=== PATIENT | male | born 1980 | race African-American/Black ===

== ENCOUNTER 2019-06-14 17:02 | Observation (INO) | payer SELFPAY ==
--- NOTE | 2019-06-14 17:44 | CT ---
CT head noncontrast HISTORY: Head injury. Syncope. COMPARISON: 07/26/2002. FINDINGS: There is no evidence of acute intracranial hemorrhage or infarct. Hyperdensity at each basa l ganglia has progressed and is consistent with dystrophic calcification. It is somewhat pronounced for the patient's age. There is no mass effect or shift of midline structures. Mucosal thickening wit hin the ethmoid air cells. IMPRESSION: No acute intracranial abnormalities are demonstrated.
[2019-06-14 17:55] LABS: #Eosinphils 0.1 thou/uL (0.0-0.7); #Lymphocytes 1.1 thou/uL (1.20-3.40); #Monocytes 0.7 thou/uL (0.11-0.59); #Neutrophils 5.6 thou/uL (1.40-6.50); %Basophils 0.1 % (0.0-1.0); %Eosinophils 1.4 % (0.0-10.0); %Lymphocytes 15.3 % (21.0-51.0); %Monocytes 8.8 % (0.0-10.0); %Neutrophils 74.4 % (42.0-75.0); Hemoglobin 12.7 g/dL (14.0-18.0); Mean Corpuscular HGB CONC 34.4 g/dL (32.0-36.0); Mean Corpuscular Hemoglobin 32.2 pg (27.0-31.0); Mean Corpuscular Volume 93.5 fL (78.0-98.0); Mean Platelet Volume 6.9 fL (7.4-10.4); Platelet Count 230 thou/uL (130-400); RBC Distribution Width 11.5 % (11.5-14.5); Red Blood Cell (RBC) Count 3.95 mill/uL (4.70-6.10); White Blood Cell (WBC) Count 7.5 thou/uL (4.8-10.8)
[2019-06-14 18:16] LABS: ALT (SGPT) 108 U/L (8-55); AST (SGOT) 238 U/L (5-34); Acetaminophen Less than 6.0 mcg/mL (10.0-30.0); Alcohol 32 mg/dL (Less than 10); Alkaline Phosphatase 80 U/L (40-110); Anion Gap 15 mmol/L (10-20); BUN (Urea Nitrogen) 15 mg/dL (8.9-20.6); Bilirubin, Total 0.5 mg/dL (0.2-1.2); Calc. Creatinine Clearance 0 mL/min (70-130); Calcium 8.8 mg/dL (7.8-10.44); Carbon Dioxide 22 mmol/L (22-29); Chloride 107 mmol/L (98-107); Estimated GFR-MDRD Greater than 90; Globulin 3.1 g/dL (2.4-3.5); Glucose 116 mg/dL (70-105); Lipase 24 U/L (8-78); Potassium 3.5 mmol/L (3.5-5.1); Protein, Total 7.1 g/dL (6.0-8.3); Salicylate Less than 8.0 mg/dL (15.0-30.0); Sodium 140 mmol/L (136-145)
--- NOTE | 2019-06-14 18:33 | RAD ---
Chest one view HISTORY: Syncope. FINDINGS: Cardiac silhouette is magnified by projection. Pulmonary vasculature is unremarkable. Media stinum is midline. No lobar consolidation or evidence of pneumothorax. Old right clavicle fracture. IMPRESSION: No active cardiopulmonary abnormalities are demonstrated.
[2019-06-14 18:43] LABS: CK (CPK) 13445 U/L (30-200)
[2019-06-14 21:30] LABS: Bilirubin Negative (Negative); Blood, Urine Negative (Negative); Clarity Clear (Clear); Glucose, Urine (Dipstick) Normal (Negative); Leukocyte Negative Leu/uL (Negative); Nitrite Negative (Negative); Protein, Urine (Dipstick) Negative (Neg-Trace); Urobilinogen Normal mg/dL (Less than 2)
[2019-06-14 21:43] LABS: Medtox Reader # READER 4
[2019-06-14 21:44] LABS: Amphetamine Not Detected (NotDetected); Barbiturates Screen Not Detected (NotDetected); Benzodiazepine Screen Not Detected (NotDetected); Cocaine Metabolite Screen Not Detected (NotDetected); Medtox Control Line Valid? VALID (VALID); Methadone Not Detected (NotDetected); Methamphetamine Not Detected (NotDetected); Opiate Screen Not Detected (NotDetected); Oxycodone Screen Not Detected (NotDetected); Phencyclidine (PCP) Detected (NotDetected); THC/Cannabinoid Screen Not Detected (NotDetected); Tricyclic Screen Not Detected (NotDetected)
[2019-06-15] MEDS ORDERED: Acetaminophen 325 MG TAB PO PRN ×2 (00:36→06:25)
[2019-06-15] MEDS ORDERED: Ondansetron ODT 4 MG TAB SL PRN (00:36)
[2019-06-15] MEDS ORDERED: Ondansetron PF 4 MG/2 ML Vial IVP PRN ×2 (00:36→06:25)
[2019-06-15 00:48] VITALS: BMI 26.2
[2019-06-15] MEDS: Lactated Ringer's 1,000 ML IV SCH ×2 (01:04→05:30)
[2019-06-15] MEDS ORDERED: hydrALAZINE 20 MG/ML VIAL SLOW IVP PRN (06:25)
[2019-06-15] MEDS ORDERED: Ondansetron ODT 4 MG TAB PO PRN (06:25)
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
[2019-06-15 07:10] LABS: HBCM Index 0.05 S/CO (0-0.79); Hep A IgM AB Non-Reactive (NonReactive); Hep C IgG Ab Non-Reactive (NonReactive); Hep C Index 0.07 S/CO (0-0.79); Hepatitis B Core IgM Abs Non-Reactive (NonReactive)
[2019-06-15] MEDS ORDERED: Loratadine 10 MG TAB PO PRN (07:30)
[2019-06-15] MEDS ORDERED: Bisacodyl 10 MG SUPP PR PRN (07:30)
[2019-06-15] MEDS ORDERED: Cepastat Lozenges 1 LOZ PO PRN (07:30)
[2019-06-15] MEDS ORDERED: Diabetic Tussin 200 MG/10 ML UDCUP PO PRN (07:30)
[2019-06-15] MEDS ORDERED: Labetalol HCl 100 MG/20 ML VIAL SLOW IVP PRN (07:30)
[2019-06-15] MEDS ORDERED: Loperamide HCl 2 MG CAP PO PRN (07:30)
[2019-06-15] MEDS ORDERED: Calcium Carbonate 500 MG ChewTAB PO PRN (07:30)
[2019-06-15] MEDS ORDERED: Artificial Tears 18 DROP/0.9 ML EA EYE PRN (07:30)
[2019-06-15] MEDS ORDERED: HYDROcodone/Acetaminophen 5/325 mg Tablet PO PRN (07:30)
[2019-06-15] MEDS ORDERED: Senokot S 8.6-50 MG TAB PO PRN (07:30)
[2019-06-15] MEDS ORDERED: Sodium Chloride 0.65% Nasal 44 ML BOT EA NARE PRN (07:30)
[2019-06-15] MEDS ORDERED: Temazepam 15 MG CAP PO PRN (07:30)
[2019-06-15] MEDS: Sodium Chloride 0.9% 1,000 ML IV SCH ×3 (07:56→20:09)
[2019-06-15] MEDS: Famotidine 20 MG TAB PO SCH ×2 (07:58→20:09)
[2019-06-15] MEDS: Enoxaparin Sodium 40 MG/0.4 ML SYRINGE SC SCH (07:58)
[2019-06-15 08:50] LABS: Hep B Surf Ag Reflx Confirmation S/CO (NonReactive)
[2019-06-15 08:52] LABS: HBSAg Index 5445.63 S/CO (0-0.99)
--- NOTE | 2019-06-15 08:55 | ULT ---
EXAM: US Abdominal CLINICAL HISTORY: Elevated liver function test. COMPARISON: None. FINDINGS: Pancreas: Obscured by bowel gas IVC: Obscured by bowel gas Aorta: Visualized aorta has a normal caliber. Liver:Normal hepatic parenchymal echotexture. No hepatic masses or intrahepatic biliary dilatation. T he contour of the hepatic margins maintained. Gallbladder: Contracted, likely due to nonfasting state. Limited evaluation. Romero's sign:Negative CBD: Common bile duct diameter 0.4 cm Portal vein: Patent. Appropriate directional flow. Right kidney: No hydronephrosis. Right kidney measuring 5.2 x 4.4 x 8.4 cm in length. Left kidney: No hydronephrosis . Left kidney measuring 10.0 x 5.2 x 5.5 cm in length Spleen: Normal echotexture. Spleen measures 9.9 cm in maximal length IMPRESSION: 1. Contracted gallbladder, limiting evaluation 2. Normal hepatic parenchymal echotexture. 3. No hydronephrosis.
[2019-06-15] MEDS ORDERED: FLU VACC QS2019-20(6MOS UP)/PF 60 MCG/0.5 ML SYRINGE IM ONE (09:00)
--- NOTE | 2019-06-15 11:46 | PDOC.HOSPP ---
- Subjective Encounter Date: 06/15/19 Encounter Time: 09:45 Subjective: Patient seen and examined. No new complaints. No overnight events - Objective Vital Signs & Weight: Vital Signs (12 hours) Temp Pulse Resp BP Pulse Ox 06/15/19 07:49 98.5 F 88 20 117/55 L 93 L 06/15/19 04:00 99.0 F 91 20 117/73 95 06/15/19 00:20 98.4 F 83 18 126/79 98 Weight Weight 178 lb Result Diagrams: 06/14/19 17:46 06/14/19 17:46 Radiology Reviewed by me: Yes Hospitalist ROS - Review of Systems Eyes: denies: pain, vision change, conjunctivae inflammation, eyelid inflammation, redness, other ENT: denies: ear pain, ear discharge, nose pain, nose discharge, nose congestion , mouth pain, mouth swelling, throat pain, throat swelling, other Respiratory: denies: cough, dry, shortness of breath, hemoptysis, SOB with excertion, pleuritic pain, sputum, wheezing, other Cardiovascular: denies: chest pain, palpitations, orthopnea, paroxysmal noc. dyspnea, edema, light headedness, other Gastrointestinal: denies: nausea, vomiting, abdominal pain, diarrhea, constipation, melena, hematochezia, other Genitourinary: denies: dysuria, frequency, incontinence, hematuria, retention, other Skin: denies: rash, lesions, flaca, bruising, other - Medication Medications: Active Medications Generic Name Dose Route Start Last Admin Trade Name Freq PRN Reason Stop Dose Admin Enoxaparin Sodium 40 mg 06/15/19 09:00 06/15/19 07:58 Lovenox SC 40 mg 0900 ANTHONY Administration Famotidine 20 mg 06/15/19 09:00 06/15/19 07:58 Pepcid PO 20 mg BID ANTHONY Administration Sodium Chloride 1,000 mls @ 150 mls/hr 06/15/19 06:30 06/15/19 07:56 Normal Saline 0.9% IV 1,000 mls .[id number] ANTHONY Administration Sodium Chloride 10 ml 06/15/19 09:00 06/15/19 08:00 Flush - Normal Saline IVF 10 ml Q12HR ANTHONY Administration - Exam General Appearance: NAD, awake alert Eye: PERRL, anicteric sclera ENT: normocephalic atraumatic, no oropharyngeal lesions Neck: supple, symmetric, no JVD, no thyromegaly, no lymphadenopathy Heart: RRR, no murmur, no gallops, no rubs Respiratory: CTAB, no wheezes, no rales, no ronchi Gastrointestinal: soft, non-tender, non-distended, normal bowel sounds Extremities: no cyanosis, no clubbing, no edema Skin: normal turgor, no lesions, no rashes Neurological: cranial nerve grossly intact, no focal deficits Musculoskeletal: normal tone, normal strength Psychiatric: normal affect, normal behavior Hosp A/P (1) Elevated liver function tests Code(s): R94.5 - ABNORMAL RESULTS OF LIVER FUNCTION STUDIES Status: Acute (2) Rhabdomyolysis Code(s): M62.82 - RHABDOMYOLYSIS Status: Acute (3) Schizophrenia Code(s): F20.9 - SCHIZOPHRENIA, UNSPECIFIED Status: Chronic (4) Substance abuse Code(s): F19.10 - OTHER PSYCHOACTIVE SUBSTANCE ABUSE, UNCOMPLICATED Status: Chronic (5) Hepatitis B Status: Chronic Qualifiers: Viral hepatitis chronicity: chronic - Plan old records reviewed/req 06/15/19 continue IVF today repeat labs tomorrow possible discharge tomorrow if CK better counselled to avoid substance abuse RUQ US is normal check hepatitis IgG antibody tomorrow
[2019-06-16] MEDS: Sodium Chloride 0.9% 1,000 ML IV SCH ×2 (02:30→06:07)
[2019-06-16 06:13] LABS: ALT (SGPT) 67 U/L (8-55); AST (SGOT) 80 U/L (5-34); Albumin 3.4 g/dL (3.5-5.0); Alkaline Phosphatase 68 U/L (40-110); Anion Gap 10 mmol/L (10-20); BUN (Urea Nitrogen) 7 mg/dL (8.9-20.6); Bilirubin, Total 0.7 mg/dL (0.2-1.2); CK (CPK) 3520 U/L (30-200); Calc. Creatinine Clearance 146 mL/min (70-130); Calcium 8.4 mg/dL (7.8-10.44); Carbon Dioxide 23 mmol/L (22-29); Chloride 111 mmol/L (98-107); Estimated GFR-MDRD Greater than 90; Glucose 86 mg/dL (70-105); Potassium 3.5 mmol/L (3.5-5.1); Protein, Total 6.4 g/dL (6.0-8.3); Sodium 140 mmol/L (136-145)
[2019-06-16 06:18] LABS: Hep B Surf AB Non-Reactive (NonReactive)
[2019-06-16 08:18] VITALS: BP 128/72; TEMP 98.2
[2019-06-16] MEDS: Famotidine 20 MG TAB PO SCH (08:50)
[2019-06-16] MEDS: Enoxaparin Sodium 40 MG/0.4 ML SYRINGE SC SCH (08:50)
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
[2019-06-16 14:09] LABS: Hep B Surface AG-Rflx Sendout Confirm. indicated (Negative)
== END 2019-06-16 14:10 | disposition home or self-care (01) ==
LOC: ERS 17:02 → T4-A 19:15
PROVIDERS: ADMIT Internal Medicine; ATTEND Internal Medicine
DX: M62.82 Rhabdomyolysis (principal); F16.10 Hallucinogen abuse, uncomplicated; F20.9 Schizophrenia, unspecified; B18.1 Chronic viral hepatitis B without delta-agent; F17.210 Nicotine dependence, cigarettes, uncomplicated; F41.9 Anxiety disorder, unspecified; Z79.899 Other long term (current) drug therapy
CPT/HCPCS: 36415; 70450; 71045; 80053; 80074; 80306; 80307; 81003; 82550; 83690; 84443; 85025; 86706; 87340; 90471; 90686; 93005; 93975; 96360; 96361; 96372; G0008; G0378; J1650

== ENCOUNTER 2020-06-15 12:47 | Emergency (ER) | payer OTHER, SELFPAY ==
--- NOTE | 2020-06-15 13:57 | RAD ---
XR Chest 1 View Portable HISTORY: Cough COMPARISON: 06/21/2019 FINDINGS: The heart size is normal. The lungs are well expanded without focal areas of consolidation, pneumothorax or pleural effusions. IMPRESSION: No radiographic evidence of acute cardiopulmonary process.
--- NOTE | 2020-06-15 13:58 | RAD ---
XR Foot Lt 3 View STANDARD HISTORY: left foot pain FINDINGS: No fracture or dislocation is identified.
[2020-06-15 14:21] LABS: #Eosinphils 0.1 thou/uL (0.0-0.7); #Lymphocytes 1.5 thou/uL (1.20-3.40); #Monocytes 0.7 thou/uL (0.11-0.59); #Neutrophils 3.7 thou/uL (1.40-6.50); %Basophils 0.7 % (0.0-1.0); %Eosinophils 1.4 % (0.0-10.0); %Lymphocytes 24.3 % (21.0-51.0); %Monocytes 12.2 % (0.0-10.0); %Neutrophils 61.4 % (42.0-75.0); Hemoglobin 14.1 g/dL (14.0-18.0); Mean Corpuscular HGB CONC 34.5 g/dL (32.0-36.0); Mean Corpuscular Hemoglobin 32.6 pg (27.0-31.0); Mean Corpuscular Volume 94.5 fL (78.0-98.0); Mean Platelet Volume 7.2 fL (7.4-10.4); Platelet Count 270 thou/uL (130-400); RBC Distribution Width 11.7 % (11.5-14.5); Red Blood Cell (RBC) Count 4.33 mill/uL (4.70-6.10)
[2020-06-15 14:40] LABS: ALT (SGPT) 17 U/L (8-55); AST (SGOT) 30 U/L (5-34); Alkaline Phosphatase 96 U/L (40-110); Anion Gap 12 mmol/L (10-20); BUN (Urea Nitrogen) 6 mg/dL (8.9-20.6); Bilirubin, Total 0.8 mg/dL (0.2-1.2); Calc. Creatinine Clearance 0 mL/min (70-130); Calcium 9.4 mg/dL (7.8-10.44); Carbon Dioxide 28 mmol/L (22-29); Chloride 104 mmol/L (98-107); Estimated GFR-MDRD Greater than 90; Globulin 3.2 g/dL (2.4-3.5); Glucose 92 mg/dL (70-105); Potassium 3.3 mmol/L (3.5-5.1); Protein, Total 7.2 g/dL (6.0-8.3); Sodium 141 mmol/L (136-145)
== END 2020-06-15 15:17 | disposition home or self-care (01) ==
LOC: ERS 12:47
DX: T69.022A Immersion foot, left foot, initial encounter (principal); F41.9 Anxiety disorder, unspecified; F20.9 Schizophrenia, unspecified; Z79.899 Other long term (current) drug therapy
CPT/HCPCS: 36415; 71045; 80053; 83605; 85025; 85652; 86140